=== PATIENT | male | born 1925 | race Caucasian/White ===

== ENCOUNTER 2016-10-25 15:00 | Observation (INO) ==
[2016-10-24 15:23] LABS: Basophils % 0.1 %; Eosinophils % 0.1 %; Hematocrit 21.8 % (37.5-50.1); Hemoglobin 6.9 g/dL (12.9-16.9); Immature Granulocytes % 0.3 % (0-4); Lymphocytes # 2.1 K/mcL (0.6-4.6); Lymphocytes % 28.3 %; Mean Corpuscular HGB Conc 31.7 g/dL (31.6-35.5); Mean Corpuscular Hemoglobin 26.2 pg (28.0-33.3); Mean Corpuscular Volume 82.9 fL (83.0-100.0); Mean Platelet Volume 10.2 fL (9.4-12.4); Monocytes # 1.1 K/mcL (0.0-1.3); Monocytes % 14.6 %; Neutrophils # 4.2 K/mcL (1.6-8.9); Platelet Count 377 K/mcL (140-400); Red Blood Count 2.63 M/mcL (4.19-5.50); Red Cell Distribution Width 13.8 % (11.5-14.5); Segmented Neutrophils % 56.6 %
[2016-10-24] MEDS: 0.9 % Sodium Chloride 1,000 ML IVC SCH (22:16)
[2016-10-25] MEDS: 0.9 % Sodium Chloride 1,000 ML IVC SCH (01:21)
[2016-10-25 05:16] LABS: INR 1.2
[2016-10-25 05:32] LABS: Hemoglobin 9.6 g/dL (12.9-16.9)
--- NOTE | 2016-10-25 06:52 | Urology History & Physical ---
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 He was admitted for his anemia and received 2 units of packed red blood cells. We will continue to follow his hematuria and H&H. 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 This has been persistent. Plan for cystoscopy, fulguration, cystogram, and formalin instillation. He is aware of all risks. We have admitted him for observation. History of Present Illness Chief complaint: Hematuria HPI: Mr. Murillo is a 89 year old male with a history of hematuria and radiation cystitis. He has a known history of bladder cancer and prostate cancer. He reports continue hematuria. He never initiated the hyperbaric oxygen consult. He is still having hematuria. He was admitted for anemia as he had a very low Hb. He received a transfusion last night. He is scheduled for cystoscopy, fulguration, cystogram, and formalin instillation.. Past Med Surg Social Fam HX - Past Medical History Medical history: arthritis, cancer - Past Surgical History Surgical History: cancer surgery, cataract, cholecystectomy - Social History Smoking Status: Former smoker Alcohol use: none Drug use: none Medications and Allergies Acetaminophen [Tylenol] 500 mg PO Q6H PRN 10/24/16 [History] Albuterol Sulfate [Ventolin Hfa] 2 puff IH Q4H PRN 10/24/16 [History] Calcium Carbonate [Tums] 1,000 mg PO Q4HR PRN 10/24/16 [History] Dutasteride [Avodart] 0.5 mg PO DAILY 10/24/16 [History] Fluticasone Propionate Nasal [Flonase] 50 mcg NS DAILY 10/24/16 [History] Tamsulosin [Flomax] 0.4 mg PO DAILY 10/24/16 [History] Allergies codeine Allergy (Verified 06/19/16 08:33) Hallucinating Review of Systems - Constitutional no chills, no fever(s) - EENT Nose, mouth and throat: no dizziness - Cardiovascular no chest pain - Respiratory no dyspnea - Gastrointestinal no nausea, no vomiting - Genitourinary hematuria, no flank pain - Musculoskeletal no back pain - Integumentary no erythema, no rash - Neurological no weakness - Psychiatric no suicidal ideation - Hematologic/Lymphatic no easy bleeding - Allergic/Immunologic no wheezing Exam Initial Vital Signs Temp Pulse Resp BP Pulse Ox 97.6 F 88 18 178/73 100 10/24/16 15:06 10/24/16 15:06 10/24/16 15:06 10/24/16 15:06 10/24/16 15:06 - General physical appearance Present: well developed, well nourished, no distress - Eyes Absent: icteric - ENT Present: normal nares - Neck Present: trachea midline - Respiratory Present: normal respiratory effort - Cardiovascular Cardiovascular exam IM: RRR - Abdomen Abdomen: Present: soft Urology Results - Labs 10/25/16 04:19 Abnormal lab results RBC 2.63 M/mcL (4.19-5.50) L 10/24/16 15:15 Hgb 9.6 g/dL (12.9-16.9) L D 10/25/16 04:19 Hct 29.0 % (37.5-50.1) L 10/25/16 04:19 MCV 82.9 fL (83.0-100.0) L 10/24/16 15:15 MCH 26.2 pg (28.0-33.3) L 10/24/16 15:15 PT 13.0 Seconds (9.4-12.1) H 10/25/16 04:19 All other labs normal.
--- NOTE | 2016-10-25 14:37 | Anesthesia Evaluation PreOp ---
Date of Encounter: 10/25/16 Time of Encounter: 14:30 - Past History Planned Operation: cysto, fulgaration, instill formalin Cardiac History: Denies any Significant Hx Pulmonary History: Denies Any Significant HX BECK OPERATOR History: Denies Any Significant HX Other Medical History: Other (prostate and bladder cancer S/P XRT Anemia, recieved transfusion last night) Anesthesia History: Past Anesthesia (hernia, gallbladder, AKS), Problems (PONV) Alcohol Use: none Drug use: none Medications and Allergies Acetaminophen [Tylenol] 500 mg PO Q6H PRN 10/24/16 [History] Albuterol Sulfate [Ventolin Hfa] 2 puff IH Q4H PRN 10/24/16 [History] Calcium Carbonate [Tums] 1,000 mg PO Q4HR PRN 10/24/16 [History] Dutasteride [Avodart] 0.5 mg PO DAILY 10/24/16 [History] Fluticasone Propionate Nasal [Flonase] 50 mcg NS DAILY 10/24/16 [History] Tamsulosin [Flomax] 0.4 mg PO DAILY 10/24/16 [History] Allergies codeine Allergy (Verified 06/19/16 08:33) Hallucinating - Meds/Allergy Pre-op Review Medications Reviewed: Yes Allergies Reviewed: Yes Beta Blockers on Current Med List: No Anesthesia Results - Labs 10/25/16 04:19 Anesthesia Exam Selected Entries 10/25/16 11:00 Temperature 98.4 F Pulse Rate 74 Respiratory Rate 16 Blood Pressure 175/80 O2 Sat by Pulse Oximetry 98 NPO (# of Hours): 8 Pain Scale: 0 Pain Scale Used: Numeric (1 - 10) - HEENT Pupil (Motor): EOMI Mallampati: II Teeth: Missing Oral Opening: Greater than 3 - BECK OPERATOR LOC: Oriented BECK OPERATOR Motor: Normal RUE, Normal LUE, Normal RLE, Normal LLE, Normal Face BECK OPERATOR Sensory: Normal: RUE, LUE, RLE, LLE, Face - Cardiac Rhythm: Regular Murmur: None - Pulmonary Breath Sounds: bilateral Clear Respiratory Effort: Symmetrical Anesthesia Assess/Plan ASA Score: 3 Modified [place] Scale for Level of Consciousness: Cooperative, oriented, and tranquil Anesthetic Plan: General Monitoring Plan: Standard Monitors Recovery Plan: PACU (discussed risks of GA, questions answered and agrees to proceed)
[~2016-10-25 15:00] MED LIST: *HR* FentaNYL (PF) 100 MCG/2 ML VIAL ONE; *HR* HYDROcodone/Acet 5/325 mg TABLET PO PRN; *HR* Midazolam HCl 2 MG/2 ML VIAL ONE; *HR* Propofol 200 MG/20 ML VIAL IVP ONE; 0.9 % Sodium Chloride 250 ML ONE; 0.9 % Sodium Chloride 500 ML ONE; Acetaminophen 325 MG TABLET PO PRN; Famotidine 20 MG TABLET PO PRN; Fluticasone Propionate Nasal 50 MCG/SPRAY BOTTLE NS SCH; Lidocaine -MPF 2% 2 ML VIAL ONE; Naloxone 0.4 MG/ML INJ IVP PRN; Ondansetron 4 MG/2 ML VIAL IVP PRN
--- NOTE | 2016-10-25 15:32 | Operative Note ---
Date of procedure: 10/25/16 Pre-op diagnosis: hematuria Post-op diagnosis: other (bladder tumor) Procedure: Cystoscopy, clot evacuation. Transurethral resection of small bladder tumor. Implants: [address] Complications: none Anesthesia: GETA Surgeon: Edson Tinajero Estimated blood loss (cc): 1 Specimen: bladder tumor Condition: stable Disposition: PACU Procedure in Detail: Indications: Mr. Murillo is an 89-year-old gentleman who has a history of hematuria. He had a cystoscopy which I was not able to see the bladder very well secondary to the hematuria. He has a history of prostate cancer and status post radiation treatment. I was concerned that he had radiation cystitis. I recommended proceeding with a cystoscopy, clot evacuation, fulguration, possible TURBT, cystogram, and instillation of formalin. He was informed of the risks of the procedure including but not limited to bleeding, infection, injury to other structures, need for further procedures, bladder contracture, decreased bladder compliance, ureteral stricture, and the risk of anesthesia. He is willing to proceed. Procedure: After informed consent was obtained Mr. Murillo was brought back to the operating room and placed in the supine position. A timeout was performed. General anesthesia was then administered and a LMA was placed. He was then placed in the lithotomy position. His genitalia were prepped and draped in the usual sterile fashion. Cystoscopy was then performed. The anterior urethra was unremarkable. The prostate was very rigid secondary to the radiation treatments. Upon entry into the bladder there was a clot located in the dependent portion. This was irrigated out. Cystoscopy was then performed. There was evidence of papillary tumor near the right ureteral orifice extending to the bladder neck which was bleeding. There was no other bleeding from the bladder. There did not appear to be radiation cystitis. The resectoscope was then introduced using the visual obturator. Once in the bladder the visual obturator was removed and I inserted the resecting element. The tumor was resected away. The tumor was irrigated out. I then fulgurated the base of the tumor. The tumor is approximately 1-1/2 cm in diameter. As it didn't appear that he had hemorrhagic cystitis and the bleeding was just from this location, I decided to not instill formalin. Once adequate resection was performed I confirmed hemostasis with electrocautery. There appeared to be minimal bleeding. I did fulgurate the prosthetic urethra of any areas that appeared to be bleeding. A 22 Filipino catheter was placed and 30 mL was instilled into the balloon. The catheter was left to drainage. Slow continuous bladder irrigation was started. The patient was then awakened from general anesthesia and brought to the recovery room in good condition. All sponge, needle and instrument counts were correct.
[2016-10-25] MEDS ORDERED: *HR* Promethazine 25 MG/ML VIAL IVP PRN (15:43)
[2016-10-25] MEDS ORDERED: *HR* HYDROmorphone (PF) 1 MG/ML SYRINGE IVP PRN (15:43)
[2016-10-25] MEDS ORDERED: Acetaminophen IV 1,000 MG/100 ML INFUS..BTL IVPB ONE (15:45)
[2016-10-25] MEDS ORDERED: CloNIDine Patch 0.1 MG PATCH (WEEKLY) TD STA (15:45)
[2016-10-25] MEDS: *HR* Labetalol 100 MG/20 ML MDV IVP PRN ×2 (15:52→16:02)
[2016-10-25] MEDS ORDERED: Naloxone 0.4 MG/ML INJ IVP PRN (16:47)
[2016-10-25] MEDS ORDERED: Famotidine 20 MG TABLET PO PRN ×2 (16:47→16:57)
[2016-10-25] MEDS ORDERED: *HR* HYDROcodone/Acet 5/325 mg TABLET PO PRN (16:47)
[2016-10-25] MEDS ORDERED: Ondansetron 4 MG/2 ML VIAL IVP PRN (16:47)
[2016-10-25] MEDS ORDERED: Acetaminophen 325 MG TABLET PO PRN (16:47)
[2016-10-25] MEDS ORDERED: 0.9 % Sodium Chloride 1,000 ML IVC SCH (16:47)
--- NOTE | 2016-10-26 07:27 | Urology Progress Note ---
Date of Encounter: 10/26/16 Time of Encounter: 07:25 - Assessment and Plan (1) Anemia Current Visit: Yes Status: Acute Assessment and plan: Bleeding has resolved. Qualifiers: Qualified Code(s): D62 - Acute posthemorrhagic anemia (2) Hematuria due to irradiation cystitis Current Visit: Yes Status: Acute Assessment and plan: There did not appear to be radiation cystitis the time of surgery. No formalin was instilled. (3) Bladder cancer Current Visit: Yes Status: Acute Assessment and plan: Postoperative day #1 status post TURBT. I will discontinue the CBI. He can ambulate today. Anticipated discharge home with the catheter. We will have him return in 7-10 days for a voiding trial. 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 He is doing well. His urine is clear. His pain is adequately controlled. Objective Initial Vital Signs Temp Pulse Resp BP Pulse Ox 97.6 F 88 18 178/73 100 10/24/16 15:06 10/24/16 15:06 10/24/16 15:06 10/24/16 15:06 10/24/16 15:06 - General physical appearance Present: well developed, well nourished, no distress - Respiratory Present: normal respiratory effort - Abdomen Present: soft - Genitourinary Urine Appearance: Present: Clear - Labs 10/25/16 04:19 - VTE Documentation of Mechanical Device: Intermittent pneumatic compression device Consult Discharge Plan - Plan Referrals: Edson Tinajero MD [Partnered Physician] - 11/04/16 8:30 am Sharon Bermeo CNP [Primary Care Provider] -
[2016-10-26] MEDS ORDERED: Fluticasone Propionate Nasal 50 MCG/SPRAY BOTTLE NS SCH (09:00)
[2016-10-26 11:00] VITALS: BP 156/69
--- NOTE | 2016-10-26 12:28 | Discharge Summary ---
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 - Discharge Medications Prescriptions: Catheter [Catheter with Strap] 1 each MC ONCE #1 each Docusate [Colace] 100 mg PO BID PRN #60 capsule PRN Reason: Constipation Polyethylene Glycol 3350 [MiraLAX Powder Bulk 17.9 Oz] 1 scoop PO DAILY #510 gm Home Medications: Acetaminophen [Tylenol] 500 mg PO Q6H PRN 10/24/16 [History] Albuterol Sulfate [Ventolin Hfa] 2 puff IH Q4H PRN 10/24/16 [History] Calcium Carbonate [Tums] 1,000 mg PO Q4HR PRN 10/24/16 [History] Dutasteride [Avodart] 0.5 mg PO DAILY 10/24/16 [History] Fluticasone Propionate Nasal [Flonase] 50 mcg NS DAILY 10/24/16 [History] Tamsulosin [Flomax] 0.4 mg PO DAILY 10/24/16 [History] Catheter [Catheter with Strap] 1 each MC ONCE #1 each 10/26/16 [Rx] Docusate [Colace] 100 mg PO BID PRN #60 capsule 10/26/16 [Rx] Polyethylene Glycol 3350 [MiraLAX Powder Bulk 17.9 Oz] 1 scoop PO DAILY #510 gm 10/26/16 [Rx] Allergies/Adverse Reactions: Allergies codeine Allergy (Verified 06/19/16 08:33) Hallucinating Labs on day of discharge: Labs from last 24 hours 10/25/16 17:22 POC Glucose 79 Date of admission: 10/24/16 14:34 Primary care physician: Sharon Bermeo CNP Discharging clinician: Edson Tinajero Anticipated date of discharge: 10/26/16 - Patient Status Disposition: Home, Self-Care Condition: Good Functional capacity at discharge: independent ambulation Overall status at discharge: patient is progressing back to baseline - Discharge Instructions Follow Up With: Edson Tinajero MD [Partnered Physician] - 11/04/16 8:30 am Sharon Bermeo CNP [Primary Care Provider] - Additional Instructions: Please provide catheter care instructions - leg bag, night bag, leg strap and how to change the bags appropriately. 1. No heavy lifting greater than 20 pounds x2 weeks. 2. No tub baths until catheter removed. 3. May shower tomorrow. 4. He should follow up in 1 week for a voiding trial. 5. He should return for any fevers, chills, nausea, vomiting, or significant hematuria. - Diet and Activity Activity: increase activity as tolerated Diet: advance to your usual diet - Hospital Course Hospital course: Mr. Murillo is a 89 year old male presented with anemia. He was transfused 2 units upon admission. He also had hematuria. On October 25, 2016 he underwent a transurethral resection of bladder tumor. His urine cleared after surgery. He was then discharged home on October 26, 2016 with his catheter. - Time Spent with Patient Total time spent providing and/or coordinating discharge services: Less than 30 minutes Exam Initial Vital Signs Temp Pulse Resp BP Pulse Ox 97.6 F 88 18 178/73 100 10/24/16 15:06 10/24/16 15:06 10/24/16 15:06 10/24/16 15:06 10/24/16 15:06 - General physical appearance Present: well developed, well nourished, no distress - Eyes Absent: icteric - ENT Present: normal nares - Neck Present: trachea midline - Respiratory Present: normal respiratory effort - Cardiovascular Cardiovascular exam IM: RRR - Abdomen Abdomen: Present: soft - Genitourinary normal penis with no external lesions - VTE Documentation of Mechanical Device: Intermittent pneumatic compression device
== END 2016-10-26 13:24 | disposition home or self-care (01) ==
LOC: 3ANU → EDSTATUS 15:00
PROVIDERS: ADMIT Urology; ATTEND Urology